=== PATIENT | male | born 1960 | race Two or more races ===

== ENCOUNTER 2022-09-28 10:15 | Inpatient (IN) | payer OTHER ==
[2022-10-02] MEDS ORDERED: KETO10TA2 PO (17:13)
[2022-10-02] MEDS ORDERED: TYLENOL ARTHRI650 MG PO (17:13)
[2022-10-02] MEDS ORDERED: ULTRAM50 MG PO (17:13)
[2022-10-02] MEDS ORDERED: MIRALAX17 GM PO (17:13)
== END 2022-10-02 18:02 | disposition home or self-care (01) | DRG 337 ==
LOC: O/R 10-01 09:07 → SURG 10-01 10:15 → SURH 10-01 15:43
PROVIDERS: ADMIT Surgery; ATTEND Surgery
PROC: 0WUF0JZ Supplement Abdominal Wall with Synthetic Substitute, Open Approach (ICD-10-PCS; 2022-10-01)
PROC: 0KRL07Z Replacement of Left Abdomen Muscle with Autologous Tissue Substitute, Open Approach (ICD-10-PCS; 2022-10-01)
PROC: 0KRK07Z Replacement of Right Abdomen Muscle with Autologous Tissue Substitute, Open Approach (ICD-10-PCS; 2022-10-01)
PROC: 0WJF4ZZ Inspection of Abdominal Wall, Percutaneous Endoscopic Approach (ICD-10-PCS; 2022-10-01)
PROC: 0DN80ZZ Release Small Intestine, Open Approach (ICD-10-PCS; principal; 2022-10-01 15:00)
DX: K43.0 Incisional hernia with obstruction, without gangrene (principal); K42.0 Umbilical hernia with obstruction, without gangrene